=== PATIENT | male | born 1950 | race Caucasian/White ===

== ENCOUNTER 2023-10-21 12:48 | Outpatient (CLI) | payer MEDICARE, SELFPAY ==
--- NOTE | 2023-10-26 11:54 | WPDHOLTEREM ---
Holter/Event Monitor Holter/Event Monitor Date of procedure: 10/21/23 Holter/Event Procedure: 24 Hr Holter Monitor Indications: PVC's Conclusion: 1. 24 hour holter monitor on 10/21/23. 2. Predominant rhythm is sinus rhythm. HR range 52-135 bpm; average HR 87 bpm. 3. There are 3,744 premature supraventricular complexes and 8 supraventricular couplets. There is 1 episode of atrial tachycardia at 162 bpm lasting 18 beats at 13:38. 4. There are 7,065 premature ventricular complexes, 3 ventricular couplets, 1,145 ventricular bigeminy. No ventricular tachycardia. 5. No sinoatrial or atrioventricular blocks. No significant pauses greater than 2 seconds. 6. No symptoms available for correlation.
== END 2023-10-21 12:49 | disposition home or self-care (01) ==
LOC: ANHCARD 12:50
PROVIDERS: PCP Family Medicine; Visit Provider Physician Assistant
DX: I49.3 Ventricular premature depolarization (principal)
CPT/HCPCS: 93225; 93226

== ENCOUNTER 2023-12-27 07:25 | Outpatient (CLI) | payer MEDICARE, SELFPAY ==
--- NOTE | 2023-12-27 07:42 | EST_ITS ---
Patient Info Name: Joshua Franco Age: 73 years : 1950 Gender: Male Ht: 72 in Wt: 192 lbs BSA: 2.11 m2 HR: 86 bpm BP: 172 / 89 mmHg Heart Rhythm: Sinus Rhythm Exam Date: 12/27/2023 8:35 AM Exam Location: Echo Lab Patient Status: Outpatient Admit Date: 12/27/2023 Staff Ordering Physician: Steffen Braswell DO Attending Provider: Steffen Braswell DO Exercise Technologist: Felisa Coy CT Exercise Physician: Steffen Braswell DO Exam Type: CA stress test treadmill Study Info Indications I47.1 - Supraventricular tachycardia A treadmill exercise stress test was performed. Summary 1. 1. Equivocal Juan J exercise stress test for ischemic ST changes by ECG criteria. 2. 2. Reduced functional capacity, achieving 4.5 METs of workload. 3. 3. Baseline hypertension with hypertensive response to exercise. 4. 4. Appropriate HR response to exercise. 5. 5. Appropriate HR recovery at 1 minute post exercise. 6. 5. No imaging with stress testing. 7. 6. Patient informed of the above results. Protocol: Juan J Stress ECG Details Stage: REST Duration (min): 4 min : 8 sec Speed (mph): 0.0 Grade (%): 0 HR (bpm): 83 SBP (mmHg): 172 DBP (mmHg): 89 METS: --- Stage: REST Duration (min): 9 min : 51 sec Speed (mph): 0.0 Grade (%): 0 HR (bpm): 88 SBP (mmHg): 172 DBP (mmHg): 89 METS: --- Stage: STAGE 1 Duration (min): 1 min : 0 sec Speed (mph): 1.7 Grade (%): 10 HR (bpm): 102 SBP (mmHg): 172 DBP (mmHg): 89 METS: --- Stage: STAGE 1 Duration (min): 2 min : 0 sec Speed (mph): 1.7 Grade (%): 10 HR (bpm): 116 SBP (mmHg): 172 DBP (mmHg): 89 METS: --- Stage: STAGE 1 Duration (min): 3 min : 0 sec Speed (mph): 1.7 Grade (%): 10 HR (bpm): 128 SBP (mmHg): 213 DBP (mmHg): 73 METS: --- Stage: STAGE 2 Duration (min): 1 min : 0 sec Speed (mph): 2.5 Grade (%): 12 HR (bpm): 135 SBP (mmHg): 213 DBP (mmHg): 73 METS: --- Stage: STAGE 2 Duration (min): 1 min : 0 sec Speed (mph): 2.5 Grade (%): 12 HR (bpm): 135 SBP (mmHg): 213 DBP (mmHg): 73 METS: --- Stage: RECOVERY Duration (min): 0 min : 59 sec Speed (mph): 0.0 Grade (%): 0 HR (bpm): 120 SBP (mmHg): 200 DBP (mmHg): 77 METS: --- Stage: RECOVERY Duration (min): 1 min : 59 sec Speed (mph): 0.0 Grade (%): 0 HR (bpm): 109 SBP (mmHg): 200 DBP (mmHg): 77 METS: --- Stage: RECOVERY Duration (min): 2 min : 59 sec Speed (mph): 0.0 Grade (%): 0 HR (bpm): 98 SBP (mmHg): 196 DBP (mmHg): 78 METS: --- Stage: RECOVERY Duration (min): 3 min : 4 sec Speed (mph): 0.0 Grade (%): 0 HR (bpm): 99 SBP (mmHg): 196 DBP (mmHg): 78 METS: --- Rest HR: 88 bpm Peak HR: 136 bpm Rest Sys BP: 172 mmHg Peak Sys BP: 213 mmHg Max Pred HR: 148 bpm % Max Pred HR: 92 % Target HR: 126 bpm Max RPP: 28,968 bpm*mmHg Conner Score: -5 BP Response: Patient exhibited a hypertensive response with stress Termination Reason: Reached targ
--- NOTE | 2023-12-27 07:42 | ECHO_ITS ---
Patient Info Name: Joshua Franco Age: 73 years : 1950 Gender: Male Ht: 72 in Wt: 192 lbs BSA: 2.11 m2 HR: 84 bpm BP: 164 / 97 mmHg Technical Quality: Good Exam Date: 12/27/2023 7:49 AM Exam Location: Echo Lab Patient Status: Outpatient Admit Date: 12/27/2023 Staff Ordering Physician: tSeffen Braswell DO Pharmacy Teacher: Hillary Elkins RDCS Attending Provider: Steffen Braswell DO Referring Physician: French LAGOS; Exam Type: CA echo doppler color flow Study Info Indications I47.19 - OTHER SUPRAVENTRICULAR TACHYCARDIA Complete two-dimensional, color flow and Doppler transthoracic echocardiogram is performed. Summary 1. Complete two-dimensional, color flow and Doppler transthoracic echocardiogram is performed. 2. Left ventricular chamber dimension is normal. 3. Left ventricular systolic function is normal, estimated at 60-65%. 4. The left ventricular diastolic function is grade II diastolic dysfunction. 5. E/e' 9 is minimally elevated. 6. Global longitudinal strain is normal at -20.7%. 7. There is mild tricuspid valve regurgitation. 8. No pulmonary hypertension, estimated pulmonary arterial systolic pressure is 35 mmHg. 9. There is trace pulmonic regurgitation. Left Ventricle E/e' 9 is minimally elevated. Global longitudinal strain is normal at -20.7%. Left ventricular chamber dimension is normal. Left ventricular systolic function is normal, estimated at 60-65%. The left ventricular diastolic function is grade II diastolic dysfunction. Right Ventricle Right ventricular systolic function is normal and with normal TAPSE 2.0 cm. Right ventricular chamber dimension is normal. Left Atria Left atrial chamber dimension is normal. Right Atria Right atrial chamber dimension is normal. Aortic Valve The aortic valve is trileaflet. There is no aortic valve stenosis. There is no aortic valve regurgitation. Pulmonic Valve There is trace pulmonic regurgitation. Mitral Valve There is no mitral valve stenosis. There is no mitral valve regurgitation. Tricuspid Valve There is mild tricuspid valve regurgitation. No pulmonary hypertension, estimated pulmonary arterial systolic pressure is 35 mmHg. Pericardium/Pleural There is no pericardial effusion. Inferior Vena Cava Normal inferior vena cava with >50% collapse upon inspiration consistent with normal right atrial pressure, 5 mmHg. Aorta The aortic root size at the sinus of Valsalva is normal. Left Ventricular Outflow Tract Name Value Normal LVOT 2D LVOT Diameter 2.3 cm LVOT Doppler LVOT Peak Gradient 4 mmHg LVOT Mean Gradient 3 mmHg LVOT VTI 23 cm LVOT VTI/AV VTI Ratio 0.9 LVOT Stroke Volume 94 ml LVOT CO 6.8 l/min LVOT CI 3.2 l/min/m2 Pulmonic Valve Name Value Normal RVOT Doppler
== END 2023-12-27 07:26 | disposition home or self-care (01) ==
PROVIDERS: PCP Family Medicine; Visit Provider Internal Medicine Cardiovascular Disease
DX: I49.3 Ventricular premature depolarization (principal); I36.1 Nonrheumatic tricuspid (valve) insufficiency
CPT/HCPCS: 93017; 93306

== ENCOUNTER 2024-01-17 08:18 | Outpatient (CLI) | payer MEDICARE, SELFPAY ==
[2024-01-31 14:41] VITALS: BMI 26.2
--- NOTE | 2024-01-31 14:41 | WPDSLEEPSTUD ---
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 The patient denies awakening from sleep short of breath. He denies awakening at night with heartburn, belching or cough. He occasionally snores but is rarely loud enough that others complain. He denies having trouble sleeping when he has a cold. He denies waking up gasping for air throughout the night. He denies having breathing problems at night observed by himself or others. He denies sweating excessively at night. He denies having heart palpitations or irregular heartbeats during the night. He rarely falls asleep during the day but never while driving. He denies sleep paralysis, cataplexy and hypnagogic / hypnopompic hallucinations. He denies having trouble at school or work due to sleepiness. He denies feeling afraid of going to sleep. He rarely has nightmares. He rarely remembers his dreams. He rarely has thoughts racing through his mind. He denies feeling sad or depressed. He rarely has anxiety. He denies having muscular tension. He rarely notices parts of his body jerk. He denies kicking during the night. He denies having crawling and aching feelings in his legs and rarely has leg pain during the night. He denies grinding his teeth during sleep and denies awakening with morning jaw pain. He denies being bothered by pain during the day and denies being awakened by pain during the night. He denies waking up feeling stiff in the morning. He denies waking up with sore or achy muscles. He rarely wakes up with pain in the neck, spine and other joints. He goes to bed between 10-11 p.m. on both weekdays and weekends. It takes him 30 minutes to fall asleep. He wakes up 2-3 times a night to urinate and is able to fall back asleep within 15-20 minutes. He wakes up between 5-6 a.m. on both weekdays and weekends. He typically gets 4-6 hours of sleep per night. He will stay in bed for 15 minutes after waking up in the morning. He currently lives with his . He denies consuming any caffeinated beverages within 2 hours of bedtime. He denies engaging in physical exercise before bedtime. He denies reading and watching television before falling asleep. He denies taking naps in the afternoon or the evening. He consumes 1-2 caffeinated beverages per day. He denies tobacco, alcohol and recreational drug use. [facility] Past Medical History Medical History Erectile dysfunction Gastro-esophageal reflux disease without esophagitis History of chicken pox History of measles Mixed hyperlipidemia Overweight (BMI 25.0-29.9) Prostate cancer screening Surgical History Surgical History S/P Mohs surgery for basal cell carcinoma Family History Family History Father Patient's father is Sibling Family history of cardiovascular disease Other Family history of coronary artery disease Hypertension Social History Social History Smoking status: Never smoker Alcohol intake: never Do You Feel Safe in your Home?: Yes Lack of Transportation: No Lack of Food: Never True Current Housing: I Have Housing Concerned About Future Housing: No Difficulty Paying Gas/Electric Bills: No Difficulty Paying for Meds: No Currently Unemployed: No Education: Master's Degree or Higher Difficulty w/ Childc
== END 2024-01-18 07:45 | disposition home or self-care (01) ==
LOC: ANHCSM 08:19
PROVIDERS: PCP Family Medicine; Visit Provider Internal Medicine Cardiovascular Disease
DX: G47.33 Obstructive sleep apnea (adult) (pediatric) (principal); G47.10 Hypersomnia, unspecified; I47.19 Other supraventricular tachycardia; I47.29 Other ventricular tachycardia; I10 Essential (primary) hypertension
CPT/HCPCS: 95811